=== PATIENT | female | born 1965 | race Caucasian/White ===

== ENCOUNTER 2020-06-06 13:52 | Inpatient (IN) | payer OTHER ==
--- OUTSIDE RECORDS SUMMARY | 2020-06-06 13:55 | XMS REPORT | Continuity of Care Document ---
:1965 Author Organization [facility] t Address [address] [place] [address] Care Team Providers Name Role Phone Unavailable Unavailable Unavailable Payers Payer Name Policy Type Policy Number Effective Date Expiration Date S ource Problems This patient has no known problems. Allergies, Adverse Reactions, Alerts Allergy Allergy Status Severity Reaction(s) Onset Inactive Treating Comm ents Source Name Type Date Date Clinician soy DA Active SD 2008-02 [facility] 02-22 [place] 00:00: [address] codeine DA Active SD 2008-02 [facility] 02-22 [place] 00:00: [address] Medications This patient has no known medications. Procedures This patient has no known procedures. Results This patient has no known results.
[2020-06-06 15:13] LABS: Absolute Lymphocytes (CBC) 2.6 K/uL (0.7-4.9); Basophils % 0.6 % (0-1.3); Hematocrit 45.4 % (36.0-45.0); Lymphocytes % 17.2 % (15.3-44.8); MPV 7.2 fL (7.6-11.3); RBC Red Blood Cell Count 5.12 M/uL (3.86-4.86)
[2020-06-06] MEDS ORDERED: ONDANSETRON 4 MG/2 ML VIAL ONE ×2 (15:26→17:39)
[2020-06-06] MEDS ORDERED: MORPHINE 4 MG/ML SYR ONE (15:26)
[2020-06-06 15:27] LABS: Bilirubin Direct 0.2 mg/dL (0-0.2); Bilirubin Total 0.5 mg/dL (0.2-1.0); Potassium 3.8 mmol/L (3.5-5.1); Protein, Total 7.8 g/dL (6.4-8.2)
[2020-06-06] MEDS ORDERED: METRONIDAZOLE 500mg IVPB 500 MG/100 ML BAG IV ONE (15:27)
[2020-06-06] MEDS ORDERED: CEFTRIAXONE/SWI 1gm 1 GM/10 ML SYR ONE (15:27)
[2020-06-06] MEDS ORDERED: NA CHLORIDE 0.9% 1,000 ML ONE ×2 (15:27→20:11)
[2020-06-06] MEDS ORDERED: FAMOTIDINE 20 MG/2 ML VIAL IV ONE (15:27)
[2020-06-06] MEDS ORDERED: NA CHLORIDE 0.9% 50 ML ONE (15:27)
--- NOTE | 2020-06-06 17:10 | RAD REPORT ---
EXAM DESCRIPTION: CT - Abdomen Pelvis W Contrast - 06/06/2020 4:54 pm CLINICAL HISTORY: Abdominal pain. COMPARISON: None. TECHNIQUE: Computed axial tomography of the abdomen and pelvis was obtained. 100 cc Isovue-300 is ad ministered intravenously. Oral contrast was given. All CT scans are performed using dose optimization technique as appropriate and may include automated exposure control or mA/KV adjustment according to patient size. FINDINGS: Fatty liver The Spleen, pancreas, adrenals and kidneys appear unremarkable. The wall of the descending colon is moderately. There is no evidence of diverticulitis Uterine fibroids suspected. Neurostimulator device is in place. Normal appendix IMPRESSION: Moderate descending colitis
[2020-06-06 17:32] LABS: Urine Blood NEGATIVE (Negative); Urine Glucose NEGATIVE (Negative); Urine Protein NEGATIVE (Negative); Urine Specific Gravity 1.015 (1.005-1.030)
[2020-06-06] MEDS ORDERED: NA CHLORIDE 0.9% 500 ML ONE (17:39)
[2020-06-06] MEDS ORDERED: MORPHINE 2 MG/ML SYR ONE (17:39)
--- NOTE | 2020-06-06 17:43 | EDPHYS ---
Physician Documentation [facility] Name: Laly Carranza Age: 54 yrs Sex: Female : 1965 Arrival Date: 06/06/2020 Time: 13:54 Bed 27 Private MD: Trinidad Argueta K; Dimas Pike H ED Physician Andrea Wolf HPI: 06/06 14:56 This 54 yrs old Female presents to ER via Ambulatory with complaints of roni Rectal Bleeding. 14:56 This 54 yrs old Female presents to ER via Ambulatory with complaints of roni Rectal Bleeding. 14:56 The patient presents to the emergency department with bleeding from the rectum/anus, roni that is moderate. Onset: The symptoms/episode began/occurred 2 day(s) ago. Context: the patient has no known special context relating to the rectal area complaint(s), has a known history of hemorrhoids. Modifying factors: The symptoms are alleviated by nothing, The symptoms are aggravated by bowel movement, nothing. Associate signs and symptoms: The patient has no apparent associated signs or symptoms. Associate signs and symptoms: Pertinent positives: abdominal pain in the right lower quadrant and left lower quadrant. The patient has experienced similar episodes in the past, a few times. 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 ablasion jd3 Historical: - Allergies: 14:25 Codeine; jd3 14:25 OxyContin; jd3 14:25 serotonin HCl (bulk); jd3 14:25 Levaquin; jd3 14:25 Bactrim; jd3 - Home Meds: 14:25 aspirin 81 mg Oral TbEC [Active]; Flexeril 10 mg Oral tab [Active]; lisinopril 5 mg jd3 oral tab [Active]; metoprolol tartrate 50 mg oral tab [Active]; Neurontin 300 mg Oral cap [Active]; Nucynta ER 150 mg Oral Tb12 [Active]; Prilosec 20 mg Oral cpDR [Active]; Singulair 10 mg Oral tab [Active]; triamterene Oral [Active]; Vitamin D Oral [Active]; Xanax 0.5 mg Oral tab [Active]; Zyrtec 10 mg Oral tab [Active]; omeprazole 40 mg Oral cpDR [Active]; flecainide 50 mg oral tab [Active]; trelogy inhaler [Active]; pro air [Active]; - PMHx: 14:25 Asthma; Hypertension; Chronic pain; nerve pain; GERD; SVT; Back pain; jd3 - PSHx: 14:25 uterine ablation; jd3 - Immunization history:: Adult Immunizations unknown. - Social history:: Smoking status: unknown. ROS: 15:02 Constitutional: Negative for fever, chills, and weight loss, Eyes: Negative for injury, rnoi pain, redness, and discharge, ENT: Negative for injury, pain, and discharge, Neck: Negative for injury, pain, and swelling, Cardiovascular: Negative for chest pain, palpitations, and edema, Respiratory: Negative for shortness of breath, cough, wheezing, and pleuritic chest pain, Back: Negative for injury and pain, : Negative for injury, bleeding, discharge, and swelling, MS/Extremity: Negative for injury and deformity, Skin: Negative for injury, rash, and discoloration, Neuro: Negative for headache, weakness, numbness, tingling, and seizure, Psych: Negative for depression, anxiety, suicide ideation, homicidal ideation, and hallucinations, Allergy/Immunology: Negative for hives, rash, and allergies, Endocrine: Negative for neck swelling, polydipsia, polyuria, polyphagia, and marked weight changes, Hematologic/Lymphatic: Negative for swollen nodes, abnormal bleeding, and unusual bruising. 15:02 Abdomen/GI: Positive for abdominal pain, nausea and vomiting, abdominal cramps, of the right lower quadrant and left lower quadrant. Exam: 15:02 Constitutional: This is a well developed, well nourished patient who is awake, alert, roni and in no acute distress. Head/Face: Normocephalic, atraumatic. Eyes: Pupils equal round and reactive to light, extra-ocular motions intact. Lids and lashes normal. Conjunctiva and sclera are non-icteric and not injected. Cornea within normal limits. Periorbital areas with no swelling, redness, or edema. ENT: Nares patent. No nasal discharge, no septal abnormalities noted. Tympanic membranes are normal and external auditory canals are clear. Oropharynx with no redness, swelling, or masses, exudates, or evidence of obstruction, uvula midline. Mucous membranes moist. Neck: Trachea midline, no thyromegaly or masses palpated, and no cervical lymphadenopathy. Supple, full range of motion without nuchal rigidity, or vertebral point tenderness. No Meningismus. Chest/axilla: Normal chest wall appearance and motion. Nontender with no deformity. No lesions are appreciated. Cardiovascular: Regular rate and rhythm with a normal S1 and S2. No gallops, murmurs, or rubs. Normal PMI, no JVD. No pulse deficits. Respiratory: Lungs have equal breath sounds bilaterally, clear to auscultation and percussion. No rales, rhonchi or wheezes noted. No increased work of breathing, no retractions or nasal flaring. Abdomen/GI: Soft, non-tender, with normal bowel sounds. No distension or tympany. No guarding or rebound. No evidence of tenderness throughout. Back: No spinal tenderness. No costovertebral tenderness. Full range of motion. Skin: Warm, dry with normal turgor. Normal color with no rashes, no lesions, and no evidence of cellulitis. MS/ Extremity: Pulses equal, no cyanosis. Neurovascular intact. Full, normal range of motion. Neuro: Awake and alert, GCS 15, oriented to person, place, time, and situation. Cranial nerves II-XII grossly intact. Motor strength 5/5 in all extremities. Sensory grossly intact. Cerebellar exam normal. Normal gait. Psych: Awake, alert, with orientation to person, place and time. Behavior, mood, and affect are within normal limits. 15:02 Abdomen/GI: Inspection: abdomen appears normal, Bowel sounds: active, Palpation: mild abdominal tenderness, moderate abdominal tenderness, in the umbilical area, right lower quadrant and left lower quadrant, Liver: no appreciated palpable abnormalities, Hernia: not appreciated. Vital Signs: 14:25 BP 121 / 95; Pulse 92; Resp 18 S; Temp 98.2(TE); Pulse Ox 98% on R/A; Weight 84.82 kg jd3 (R); Height 5 ft. 5 in. (165.10 cm) (R); Pain 6/10; 15:00 BP 99 / 72; Pulse 73; Resp 16; Pulse Ox 98% on R/A; zb 16:00 BP 119 / 80; Pulse 77; Resp 16; Pulse Ox 96% on R/A; zb 17:00 BP 99 / 64; Pulse 72; Resp 16; Pulse Ox 99% on R/A; zb 18:00 BP 98 / 70; Pulse 74; Resp 18; Pulse Ox 99% on R/A; zb 19:00 BP 112 / 62; Pulse 72; Resp 16; Pulse Ox 96% on R/A; zb 20:00 BP 104 / 70; Pulse 69; Resp 16; Pulse Ox 95% on R/A; zb 14:25 Body Mass Index 31.12 (84.82 kg, 165.10 cm) jd3 MDM: 14:29 Patient medically screened. [facility] 15:04 Differential diagnosis: hemorrhoids, fissure. Data reviewed: vital signs, nurses notes, [facility] lab test result(s), radiologic studies, CT scan. 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 rate is 92 beats/min, rhythm is regular, Pulse oximetry: on room air is 98 %. Counseling: I had a detailed discussion with the patient and/or guardian regarding: the historical points, exam findings, and any diagnostic results supporting the discharge/admit diagnosis, lab results, radiology results. 06/06 14:52 Order name: Basic Metabolic Panel [facility] 06/06 14:52 Order name: CBC with Diff [facility] 06/06 14:52 Order name: Hepatic Function [facility] 06/06 14:52 Order name: Lipase [facility] 06/06 14:52 Order name: Urine Culture [facility] 06/06 14:52 Order name: Stool Culture [facility] 06/06 14:52 Order name: Basic Metabolic Panel; Complete Time: 16:16 EDOK 06/06 14:52 Order name: CBC with Automated Diff; Complete Time: 16:16 EDOK 06/06 14:52 Order name: Liver (Hepatic) Function; Complete Time: 16:16 EDOK 06/06 14:52 Order name: Lipase; Complete Time: 16:16 EDOK 06/06 17:04 Order name: COVID-19 : Document "Date of Symptom Onset" if Symptomatic. aa5 06/06 17:28 Order name: Urine Dipstick--Ancillary (enter results) eb 06/06 17:28 Order name: Urine Dipstick-Ancillary; Complete Time: 17:39 EDOK 06/06 14:52 Order name: IV Saline Lock; Complete Time: 15:49 [facility] 06/06 15:02 Order name: CT Abd/Pelvis - PO and IV Contrast: ORAL AND IV; Complete Time: 17:39 [facility] 06/06 18:24 Order name: SARS-COV-2 RT PCR; Complete Time: 18:44 EDMS 06/07 05:23 Order name: Protime (+INR) EDMS 06/07 05:23 Order name: Comprehensive Metabolic Panel EDOK 06/07 06:04 Order name: CBC with Automated Diff EDMS 06/06 14:52 Order name: Labs collected and sent; Complete Time: 15:50 [facility] 06/06 14:52 Order name: Urine Dipstick-Ancillary (obtain specimen); Complete Time: 05:30 [facility] Administered Medications: 15:22 Drug: Pepcid (famotidine) 20 mg Route: IVP; Site: right antecubital; zb 16:00 Follow up: Response: No adverse reaction; Marked relief of symptoms zb 15:23 Drug: NS 0.9% 1000 ml Route: IV; Rate: 1 bolus; Site: right antecubital; zb 17:32 Follow up: Response: No adverse reaction; IV Status: Completed infusion; IV Intake: zb 500ml 15:23 Drug: morphine 4 mg {Note: rass 0.} Route: IVP; Site: right antecubital; zb 16:15 Follow up: Response: No adverse reaction; Pain is decreased; RASS: Alert and Calm (0) zb 15:23 Drug: Zofran (Ondansetron) 4 mg Route: IVP; Site: right antecubital; zb 16:00 Follow up: Response: No adverse reaction; Marked relief of symptoms; Nausea is decreasedzb 15:23 Drug: Flagyl (metroNIDAZOLE) 500 mg Volume: 100 ml; Route: IVPB; Rate: 200 ml/hr; zb Infused Over: 30 mins; Site: right antecubital; 22:16 Follow up: IV Status: Completed infusion; IV Intake: 250ml rv 16:31 Drug: Rocephin - (cefTRIAXone) 1 grams Route: IVPB; Infused Over: 30 mins; Site: right zb antecubital; 17:33 Follow up: Response: No adverse reaction; IV Status: Completed infusion; IV Intake: 50mlzb 17:34 Drug: NS 0.9% 500 ml Route: IV; Rate: bolus; Site: right antecubital; zb 19:00 Follow up: Response: No adverse reaction; IV Status: Completed infusion; IV Intake: zb 500ml 17:35 Drug: Zofran (Ondansetron) 4 mg Route: IVP; Site: right antecubital; zb 18:43 Follow up: Response: No adverse reaction; Nausea is decreased zb 17:35 Drug: morphine 2 mg {Note: rass 0.} Route: IVP; Site: right antecubital; zb 18:43 Follow up: Response: No adverse reaction; Pain is decreased; RASS: Alert and Calm (0) zb 20:02 Drug: NS 0.9% 1000 ml Route: IV; Rate: 125 ml/hr; Site: right antecubital; zb 22:16 Follow up: IV Status: Infusion continued upon admission rv Disposition: 06/06/20 17:43 Hospitalization ordered by Charlie Cook for Inpatient Admission. Preliminary diagnosis are Left sided colitis - moderate decending colitis, Abdominal tenderness, Gastrointestinal hemorrhage, unspecified - lower, Elevated white blood cell count. - Bed requested for Telemetry/MedSurg (Inpatient). - Status is Inpatient Admission. bb - Condition is Stable. - Problem is new. - Symptoms have improved. Signatures: Dispatcher [employer] EDOK Andrea Wolf MD MD cha Ballard, Brenda RN RN bb Vikram Rae FNP-Ela INTERVENTIONAL PAIN PHYSICIAN-Cla1 Tere Brizuela, RN RN tl1 Tony Tripp RN RN jd3 Izzy Isaacs mw2 Yolie Fletcher RN RN zb Vicente, Ronaldo RN rv Corrections: (The following items were deleted from the chart) 17:37 17:05 CORONAVIRUS ordered. EDOK EDOK 18:01 17:43 Hospitalization Ordered by Deejay Schofield MD for Inpatient Admission. Preliminary [facility] diagnosis is Left sided colitis - moderate decending colitis; Abdominal tenderness; Gastrointestinal hemorrhage, unspecified - lower; Elevated white blood cell count. Bed requested for Telemetry/MedSurg (Inpatient). Status is Inpatient Admission. Condition is Stable. Problem is new. Symptoms have improved. roni 21:33 18:01 06/06/2020 17:43 Hospitalization Ordered by Charlie Cook MD for Inpatient mw2 Admission. Preliminary diagnosis is Left sided colitis - moderate decending colitis; Abdominal tenderness; Gastrointestinal hemorrhage, unspecified - lower; Elevated white blood cell count. Bed requested for Telemetry/MedSurg (Inpatient). Status is Inpatient Admission. Condition is Stable. Problem is new. Symptoms have improved. roni 06/07 19:48 06/06 21:33 06/06/2020 17:43 Hospitalization Ordered by Charlie Cook MD for Inpatient tl1 Admission. Preliminary diagnosis is Left sided colitis - moderate decending colitis; Abdominal tenderness; Gastrointestinal hemorrhage, unspecified - lower; Elevated white blood cell count. Bed requested for [facility] ER HOLD. Status is Inpatient Admission. Condition is Stable. Problem is new. Symptoms have improved. mw2 06/07 19:48 19:48 06/06/2020 17:43 Hospitalization Ordered by Charlie Cook MD for Inpatient mw2 Admission. Preliminary diagnosis is Left sided colitis - moderate decending colitis; Abdominal tenderness; Gastrointestinal hemorrhage, unspecified - lower; Elevated white blood cell count. Bed requested for Telemetry/MedSurg (Inpatient). Status is Inpatient Admission. Condition is Stable. Problem is new. Symptoms have improved. tl1 21:36 19:48 06/06/2020 17:43 Hospitalization Ordered by Charlie Cook MD for Inpatient bb Admission. Preliminary diagnosis is Left sided colitis - moderate decending colitis; Abdominal tenderness; Gastrointestinal hemorrhage, unspecified - lower; Elevated white blood cell count. Bed requested for Telemetry/MedSurg (Inpatient). Status is Inpatient Admission. Condition is Stable. Problem is new. Symptoms have improved. mw2
--- NOTE | 2020-06-06 17:43 | ER ---
Nurse's Notes [facility] Name: Laly Carranza Age: 54 yrs Sex: Female : 1965 Arrival Date: 06/06/2020 Time: 13:54 Bed 27 Private MD: Trinidad Argueta K; Dimas Pike H Diagnosis: Left sided colitis-moderate decending colitis;Abdominal tenderness;Gastrointestinal hemorrhage, unspecified-lower;Elevated white blood cell count Presentation: 06/06 14:18 Chief complaint: Patient states: "I am having bloody stool and vomiting as well as bad jd3 lower abdominal pain.". Coronavirus screen: At this time, the client does not indicate any symptoms associated with coronavirus-19. Ebola Screen: Patient negative for fever greater than or equal to 101.5 degrees Fahrenheit, and additional compatible Ebola Virus Disease symptoms. Initial Sepsis Screen: Does the patient meet any 2 criteria? No. Patient's initial sepsis screen is negative. Does the patient have a suspected source of infection? No. Patient's initial sepsis screen is negative. Risk Assessment: Do you want to hurt yourself or someone else? Patient reports no desire to harm self or others. Onset of symptoms was June 06, 2020. 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 N/A - uteren ablasion jd3 Historical: - Allergies: 14:25 Codeine; jd3 14:25 OxyContin; jd3 14:25 serotonin HCl (bulk); jd3 14:25 Levaquin; jd3 14:25 Bactrim; jd3 - Home Meds: 14:25 aspirin 81 mg Oral TbEC [Active]; Flexeril 10 mg Oral tab [Active]; lisinopril 5 mg jd3 oral tab [Active]; metoprolol tartrate 50 mg oral tab [Active]; Neurontin 300 mg Oral cap [Active]; Nucynta ER 150 mg Oral Tb12 [Active]; Prilosec 20 mg Oral cpDR [Active]; Singulair 10 mg Oral tab [Active]; triamterene Oral [Active]; Vitamin D Oral [Active]; Xanax 0.5 mg Oral tab [Active]; Zyrtec 10 mg Oral tab [Active]; omeprazole 40 mg Oral cpDR [Active]; flecainide 50 mg oral tab [Active]; trelogy inhaler [Active]; pro air [Active]; - PMHx: 14:25 Asthma; Hypertension; Chronic pain; nerve pain; GERD; SVT; Back pain; jd3 - PSHx: 14:25 uterine ablation; jd3 - Immunization history:: Adult Immunizations unknown. - Social history:: Smoking status: unknown. Screenin:06 Abuse screen: Denies threats or abuse. Denies injuries from another. Nutritional zb screening: No deficits noted. Tuberculosis screening: No symptoms or risk factors identified. Fall Risk None identified. Assessment: 15:50 General: Appears in no apparent distress. uncomfortable, Behavior is cooperative, zb anxious. Pain: Complains of pain in umbilical area and left lower quadrant and right lower quadrant Pain currently is 8 out of 10 on a pain scale. Neuro: Level of Consciousness is awake, alert, obeys commands, Oriented to person, place, time, situation. Cardiovascular: Patient's skin is warm and dry. Respiratory: Airway is patent Respiratory effort is even, unlabored, Respiratory pattern is regular, symmetrical. GI: Abdomen is round Bowel sounds present X 4 quads. Reports diarrhea, rectal bleeding, intolerance of fluids, intolerance of food, nausea, vomiting. Derm: Skin is intact, is healthy with good turgor, Skin is dry, Skin is normal, Skin temperature is warm. Musculoskeletal: Range of motion: intact in all extremities. 16:00 Reassessment: Patient appears in no apparent distress at this time. Patient and/or zb family updated on plan of care and expected duration. Pain level reassessed. Patient is alert, oriented x 3, equal unlabored respirations, skin warm/dry/pink. 17:17 Reassessment: Patient appears in no apparent distress at this time. Patient and/or zb family updated on plan of care and expected duration. Pain level reassessed. Patient is alert, oriented x 3, equal unlabored respirations, skin warm/dry/pink. pt c/o of nausea and pain. notified ecp. 18:00 Reassessment: Patient appears in no apparent distress at this time. Patient and/or zb family updated on plan of care and expected duration. Pain level reassessed. Patient is alert, oriented x 3, equal unlabored respirations, skin warm/dry/pink. FAMILY AT BEDSIDE. IV INFUSING. 19:00 Reassessment: Patient appears in no apparent distress at this time. Patient and/or zb family updated on plan of care and expected duration. Pain level reassessed. Patient is alert, oriented x 3, equal unlabored respirations, skin warm/dry/pink. FAMILY AT BEDSIDE IV INFUSING. 20:00 Reassessment: Patient appears in no apparent distress at this time. Patient and/or zb family updated on plan of care and expected duration. Pain level reassessed. Patient is alert, oriented x 3, equal unlabored respirations, skin warm/dry/pink. LIGHT DIMMED. ICE CHIPS GIVEN. FAMILY AT BEDSIDE. IV INFUSING. IV DRESS C/D/I. FAMILY REMAINS AT BEDSIDE. Vital Signs: 14:25 BP 121 / 95; Pulse 92; Resp 18 S; Temp 98.2(TE); Pulse Ox 98% on R/A; Weight 84.82 kg jd3 (R); Height 5 ft. 5 in. (165.10 cm) (R); Pain 6/10; 15:00 BP 99 / 72; Pulse 73; Resp 16; Pulse Ox 98% on R/A; zb 16:00 BP 119 / 80; Pulse 77; Resp 16; Pulse Ox 96% on R/A; zb 17:00 BP 99 / 64; Pulse 72; Resp 16; Pulse Ox 99% on R/A; zb 18:00 BP 98 / 70; Pulse 74; Resp 18; Pulse Ox 99% on R/A; zb 19:00 BP 112 / 62; Pulse 72; Resp 16; Pulse Ox 96% on R/A; zb 20:00 BP 104 / 70; Pulse 69; Resp 16; Pulse Ox 95% on R/A; zb 14:25 Body Mass Index 31.12 (84.82 kg, 165.10 cm) jd3 ED Course: 13:54 Patient arrived in ED. as 13:54 Trinidad Argueta MD is Private Physician. as 13:54 Dimas Pike MD is Private Physician. as 14:20 Triage completed. jd3 14:27 Andrea Wolf MD is Attending Physician. [facility] 14:27 Arm band placed on. jd3 14:38 Brown, Yolie, RN is Primary Nurse. zb 15:00 Patient has correct armband on for positive identification. groundwater monitoring technician on. Pulse zb ox on. NIBP on. Door closed. Noise minimized. 15:00 Inserted saline lock: 20 gauge in right antecubital area, using aseptic technique. zb Blood collected. 16:54 CT Abd/Pelvis - PO and IV Contrast: ORAL AND IV In Process Unspecified. EDMS 17:32 COVID-19 : Document "Date of Symptom Onset" if Symptomatic. Sent. zb 17:32 Urine Dipstick--Ancillary (enter results) Sent. zb 17:40 Deejay Schofield MD is Hospitalizing Provider. roni 18:01 Charlie Cook MD is Hospitalizing Provider. roni 22:15 No provider procedures requiring assistance completed. IV is patent, with fluids rv infusing freely, Patient admitted, IV remains in place. Administered Medications: 15:22 Drug: Pepcid (famotidine) 20 mg Route: IVP; Site: right antecubital; zb 16:00 Follow up: Response: No adverse reaction; Marked relief of symptoms zb 15:23 Drug: NS 0.9% 1000 ml Route: IV; Rate: 1 bolus; Site: right antecubital; zb 17:32 Follow up: Response: No adverse reaction; IV Status: Completed infusion; IV Intake: zb 500ml 15:23 Drug: morphine 4 mg {Note: rass 0.} Route: IVP; Site: right antecubital; zb 16:15 Follow up: Response: No adverse reaction; Pain is decreased; RASS: Alert and Calm (0) zb 15:23 Drug: Zofran (Ondansetron) 4 mg Route: IVP; Site: right antecubital; zb 16:00 Follow up: Response: No adverse reaction; Marked relief of symptoms; Nausea is decreasedzb 15:23 Drug: Flagyl (metroNIDAZOLE) 500 mg Volume: 100 ml; Route: IVPB; Rate: 200 ml/hr; zb Infused Over: 30 mins; Site: right antecubital; 22:16 Follow up: IV Status: Completed infusion; IV Intake: 250ml rv 16:31 Drug: Rocephin - (cefTRIAXone) 1 grams Route: IVPB; Infused Over: 30 mins; Site: right zb antecubital; 17:33 Follow up: Response: No adverse reaction; IV Status: Completed infusion; IV Intake: 50mlzb 17:34 Drug: NS 0.9% 500 ml Route: IV; Rate: bolus; Site: right antecubital; zb 19:00 Follow up: Response: No adverse reaction; IV Status: Completed infusion; IV Intake: zb 500ml 17:35 Drug: Zofran (Ondansetron) 4 mg Route: IVP; Site: right antecubital; zb 18:43 Follow up: Response: No adverse reaction; Nausea is decreased zb 17:35 Drug: morphine 2 mg {Note: rass 0.} Route: IVP; Site: right antecubital; zb 18:43 Follow up: Response: No adverse reaction; Pain is decreased; RASS: Alert and Calm (0) zb 20:02 Drug: NS 0.9% 1000 ml Route: IV; Rate: 125 ml/hr; Site: right antecubital; zb 22:16 Follow up: IV Status: Infusion continued upon admission rv Intake: 17:32 IV: 500ml; Total: 500ml. zb 17:33 IV: 50ml; Total: 550ml. zb 19:00 IV: 500ml; Total: 1050ml. zb 22:16 IV: 250ml; Total: 1300ml. rv Outcome: 17:43 Decision to Hospitalize by Provider. roni 22:16 Admitted to ER Hold. Please see [facility] for further documentation. rv 22:16 Condition: good 22:16 Instructed on the need for admit. 06/07 21:36 Patient left the ED. bb Signatures: Dispatcher [employer] nAdrea Cartagena MD MD cha Martinez, Amelia as Ballard, Brenda, RN RN bb Davies, Jonathon, RN RN Jhoan Gaytan RN RN rv Brown, Zipporah, RN RN zb
--- NOTE | 2020-06-06 21:07 | P.HP ---
Certification for Inpatient Patient admitted to: Inpatient With expected LOS: >2 Midnights Patient will require the following post-hospital care: None Practitioner: I am a practitioner with admitting privileges, knowledge of patient current condition, hospital course, and medical plan of care. Services: Services provided to patient in accordance with Admission requirements found in Title 42 Section 412.3 of the Code of Federal Regulations <Vikram Rae - Last Filed: 06/06/20 21:10> Patient History Date of Service: 06/06/20 Reason for admission: Colitis, BRBPR History of Present Illness: 54-year-old female with history of asthma, hypertension, GERD, SVT presents emergency department for lower abdominal pain and bright red blood per rectum. Patient reports abdominal pain and bright red blood per rectum since last night at approximately 1900. Patient reports 4-5 bowel movements, the 1st were soft and without blood but the following bowel movements did consist of small amounts of bright red blood. Patient evaluated in the emergency department labs significant for white blood cell count 15.1 hemoglobin 15.5 hematocrit 45.[address] demonstrates moderate descending colitis. Patient was given Rocephin/Flagyl in the emergency department. Gastroenterology was consulted and will see patient in the hospital. Patient had recent colonoscopy in March demonstrating redundant colon, internal/external hemorrhoids and gastritis. - Past Medical/Surgical History Diabetic: No -: Asthma -: Hypertension -: GERD -: SVT/atrial tachycardia -: Chronic pain -: Rotator cuff surgery -: Tummy tuck -: Uterine ablation -: Left knee surgery Psychosocial/ Personal History: Patient lives with family - Family History Mother -: Heart disease, Diabetes Father -: Heart disease Brother -: Heart disease, Cancer - Social History Smoking Status: Never smoker Alcohol use: No CD- Drugs: No Caffeine use: No Place of Residence: Home <Vikram Rae - Last Filed: 06/06/20 21:10> Date of Service: 06/13/20 <Charlie Cook - Last Filed: 06/13/20 21:40> Allergies codeine [Codeine] Allergy (Severe, Verified 08/28/11 04:52) Nausea/Vomiting levofloxacin [From Levaquin] Allergy (Verified 06/07/20 07:18) Itching/Hives/Rash oxycodone [From OxyContin] Allergy (Verified 06/07/20 07:18) Nausea/Vomiting sulfamethoxazole [From Bactrim] Allergy (Verified 06/07/20 07:18) Itching/Hives/Rash trimethoprim [From Bactrim] Allergy (Verified 06/07/20 07:18) Itching/Hives/Rash serotonin HCl (bulk) Allergy (Uncoded 10/21/15 09:56) Unknown Home Medications: Cetirizine HCl [Zyrtec] 10 mg PO BEDTIME 08/28/11 Gabapentin [Neurontin] 300 mg PO BID 08/28/11 Lisinopril 10 mg PO DAILY 08/28/11 Montelukast Sodium [Singulair] 10 mg PO BEDTIME 08/28/11 Tapentadol HCl [Nucynta] 100 mg PO TID PRN 08/28/11 Alprazolam [Xanax] 0.5 mg PO DAILY 06/07/20 Cholecalciferol (Vitamin D3) [Vitamin D 1000 Iu Tab*] 2,000 unit PO DAILY 06/07/20 Flecainide [Tambocor*] 50 mg PO BID 06/07/20 Metoprolol Tartrate [Lopressor] 50 mg PO DAILY 06/07/20 Omeprazole [Prilosec] 40 mg PO DAILY 06/07/20 Triamterene/Hydrochlorothiazid [Triamterene-Hctz 37.5-25 mg Tb] 1 cap PO DAILY 06/07/20 Cholestyramine/Asp [Questran Light*] 4 gm PO BIDWM #14 packet 06/11/20 Dicyclomine [Bentyl*] 10 mg PO TID PRN #30 cap 06/11/20 Mometasone/Formoterol [Dulera 100 Mcg/5 Mcg Inhaler] 2 puff IH BID #1 inhaler 06/11/20 Ondansetron [Zofran (Odt)*] 4 mg PO Q6H PRN #20 tab 06/11/20 Review of Systems 10-point ROS is otherwise unremarkable Gastrointestinal: Nausea, Abdominal Pain, Diarrhea, Hematochezia, As per HPI <Vikram Rae - Last Filed: 06/06/20 21:10> Physical Examination - Physical Exam General: Alert, In no apparent distress HEENT: Atraumatic, PERRLA, Mucous membr. moist/pink, EOMI, Sclerae nonicteric Neck: Supple, 2+ carotid pulse no bruit, No LAD, Without JVD or thyroid abnormality Respiratory: Clear to auscultation bilaterally, Normal air movement Cardiovascular: Regular rate/rhythm, Normal S1 S2 Gastrointestinal: Normal bowel sounds, No masses, No rebound, No guarding, Tenderness (Mild abdominal tenderness left upper and lower quadrant, suprapubic) Musculoskeletal: No tenderness Integumentary: No rashes Neurological: Normal speech, Normal strength at 5/5 x4 extr, Normal tone Lymphatics: No axilla or inguinal lymphadenopathy - Studies Laboratory Data (last 24 hrs) 06/06/20 15:04: WBC 15.10 H, Hgb 15.5 H, Hct 45.4 H, Plt Count 308 06/06/20 15:04: Sodium 138, Potassium 3.8, BUN 16, Creatinine 0.95, Glucose 100, Total Bilirubin 0.5, AST 9 L, ALT 25, Alkaline Phosphatase 87, Lipase 187 <Vikram Rae - Last Filed: 06/06/20 21:10> Assessment and Plan - Plan Assessment Moderate descending colitis with hematochezia Asthma GERD Hypertension Atrial tachycardia/SVT Plan Moderate descending colitis with hematochezia: NPO at this time, continue with IV Rocephin/Flagyl, Protonix, IV fluids, p.r.n. anti emetics. Gastroenterology consulted. DVT prophylaxis with SCDs. Daily labs. Hemoglobin 15, likely concentrated, expect drop in hemoglobin with morning labs with rehydration, transfuse for hemoglobin less than 7. Asthma: Patient takes trelogy inhaler at home, will substitute with Dulera at this time and p.r.n. albuterol. Stable at this time, no shortness of breath/wheezing noted GERD: Continue with Protonix Hypertension: Obtain and continue home meds Atrial tachycardia/SVT: Patient currently taking flecainide for SVT/atrial tachycardia, reports that acute her symptoms under control. Will continue to monitor patient on telemetry, no episodes at this time. Discharge Plan: Home Plan to discharge in: 48 Hours - Advance Directives Does patient have a Living Will: No Does patient have a Durable POA for Healthcare: No - Code Status/Comfort Care Code Status Assessed: Yes (Full code) Critical Care: No Time Spent Managing Pts Care (In Minutes): 55 <Vikram Rae - Last Filed: 06/06/20 21:10> - Plan Plan of care reviewed as noted above by Vikram Rae. descending colitis w/ Hematochezia NPO, IV Antibiotics, IVF, GI consulted, trend H/H <Charlie Cook - Last Filed: 06/13/20 21:40>
[2020-06-06] MEDS ORDERED: ACETAMINOPHEN 500 MG TAB PO PRN (22:50)
[2020-06-06] MEDS: NA CHLORIDE 0.9% 1,000 ML IV SCH (22:50)
[2020-06-06] MEDS ORDERED: SODIUM CHLORIDE 0.9% 10ML INJ IV PRN (22:50)
[2020-06-06] MEDS ORDERED: ALBUTEROL INHALER 60 PUFF/8 GM IH PRN (22:50)
[2020-06-06] MEDS: DULERA 100/5 (MOMETASONE/FORMOTEROL) INHALER IH SCH (22:50)
[2020-06-06] MEDS ORDERED: FLECAINIDE 100 MG TAB PO SCH (23:59)
[2020-06-07] MEDS: FLECAINIDE 100 MG TAB PO SCH ×3 (00:01→21:47)
[2020-06-07] MEDS ORDERED: CETIRIZINE HCL 5 MG TABLET ONE (00:22)
[2020-06-07] MEDS ORDERED: GABAPENTIN 300 MG CAP ONE ×2 (00:23→09:47)
[2020-06-07] MEDS ORDERED: ALPRAZOLAM 0.5 MG TABLET ONE (00:23)
[2020-06-07] MEDS ORDERED: NA CHLORIDE 0.9% 0 ML ONE (00:23)
[2020-06-07] MEDS ORDERED: DICYCLOMINE HCL 10 MG CAP ONE ×3 (00:29→12:01)
[2020-06-07] MEDS ORDERED: GABAPENTIN 300 MG CAP PO ONE (00:30)
[2020-06-07] MEDS ORDERED: FLECAINIDE 100 MG TAB ONE (00:45)
[2020-06-07] MEDS ORDERED: MONTELUKAST 10 MG TAB ONE (00:50)
[2020-06-07] MEDS: MORPHINE 2 MG/ML SYR IV PRN ×4 (00:53→21:51)
[2020-06-07] MEDS: DICYCLOMINE HCL 10 MG CAP PO PRN ×4 (00:53→21:52)
[2020-06-07] MEDS: ONDANSETRON 4 MG/2 ML VIAL IV PRN ×4 (00:55→21:47)
[2020-06-07] MEDS ORDERED: ONDANSETRON 4 MG/2 ML VIAL ONE ×3 (00:56→12:01)
[2020-06-07] MEDS ORDERED: MORPHINE 2 MG/ML SYR ONE ×3 (00:56→12:01)
[2020-06-07] MEDS: MONTELUKAST 10 MG TAB PO SCH ×2 (01:00→21:52)
[2020-06-07] MEDS: METRONIDAZOLE 500mg IVPB 500 MG/100 ML BAG IV SCH ×3 (01:00→17:00)
[2020-06-07] MEDS: CETIRIZINE HCL 5 MG TABLET PO PRN ×2 (01:05→21:46)
[2020-06-07] MEDS: ALPRAZOLAM 0.5 MG TABLET PO PRN ×2 (01:06→21:47)
[2020-06-07] MEDS ORDERED: METRONIDAZOLE 500mg IVPB 500 MG/100 ML BAG IV ONE ×3 (01:27→17:22)
[2020-06-07 05:10] LABS: Protime INR 1.2
[2020-06-07 05:20] LABS: Albumin 3.5 g/dL (3.4-5.0); Bilirubin Total 0.6 mg/dL (0.2-1.0); Potassium 3.9 mmol/L (3.5-5.1); Protein, Total 6.7 g/dL (6.4-8.2)
[2020-06-07] MEDS ORDERED: ACETAMINOPHEN 500 MG TAB ONE (05:28)
[2020-06-07 06:03] LABS: Absolute Lymphocytes (CBC) 3.7 K/uL (0.7-4.9); Basophils % 0.7 % (0-1.3); Hematocrit 40.3 % (36.0-45.0); Lymphocytes % 26.3 % (15.3-44.8); MPV 7.2 fL (7.6-11.3); RBC Red Blood Cell Count 4.51 M/uL (3.86-4.86)
[2020-06-07] MEDS: NA CHLORIDE 0.9% 1,000 ML IV SCH ×2 (08:50→21:48)
[2020-06-07] MEDS ORDERED: FLECAINIDE 100 MG TAB PO SCH (09:00)
[2020-06-07] MEDS ORDERED: CEFTRIAXONE 1 GM/NS 50 ML 1 GM/50 ML BAG IV SCH (09:00)
[2020-06-07] MEDS: GABAPENTIN 300 MG CAP PO SCH ×2 (09:44→21:46)
[2020-06-07] MEDS: PANTOPRAZOLE 40 MG INJ IVP SCH (09:44)
[2020-06-07] MEDS: DULERA 100/5 (MOMETASONE/FORMOTEROL) INHALER IH SCH ×2 (09:44→21:00)
[2020-06-07] MEDS: CEFTRIAXONE/SWI 1gm 1 GM/10 ML SYR IV SCH (09:45)
[2020-06-07] MEDS ORDERED: CEFTRIAXONE/SWI 1gm 1 GM/10 ML SYR ONE (09:48)
[2020-06-07] MEDS ORDERED: WATER FOR INJ,STERILE 10 ML ONE (10:00)
[2020-06-07] MEDS ORDERED: PANTOPRAZOLE 40 MG INJ ONE (10:00)
--- NOTE | 2020-06-07 17:33 | P.PN ---
Subjective Date of Service: 06/07/20 Chief Complaint: Colitis, BRBPR Subjective: Improving (reports improvement in pain, no nausea/vomiting, urinating without issue) Review of Systems 10-point ROS is otherwise unremarkable Physical Examination - Vital Signs Temperature: 98.3 F Blood Pressure: 108/63 Pulse: 68 Respirations: 19 Pulse Ox (%): 97 Assessment & Plan Physician Review Additional Text: Physical Exam General: Alert, NAD HEENT: sclera anicteric, normal conjunctiva Respiratory: Clear to auscultation bilaterally, Normal air movement Cardiovascular: Regular rate/rhythm, Normal S1 S2 Gastrointestinal: soft, mild TTP on L abdomen EXT: no tenderness, no rash, no edema Neurological: Normal speech, normal affect Problem List Moderate descending colitis with hematochezia Asthma GERD Hypertension Atrial tachycardia/SVT bowel rest / NPO, IVF, IV rocephin/flagyl protonix, PRN anti-emetics GI consulted serial abdominal exams continue home medications monitor on telemetry VTE: SCDs Code: full Dispo: anticipate dc home in ~2-3days Time Spent Managing Pts Care (In Minutes): 35
[2020-06-07 21:46] VITALS: BMI 31.4
[2020-06-08] MEDS: METRONIDAZOLE 500mg IVPB 500 MG/100 ML BAG IV SCH ×4 (00:45→17:00)
[2020-06-08] MEDS: NA CHLORIDE 0.9% 1,000 ML IV SCH ×2 (04:50→16:16)
[2020-06-08] MEDS: MORPHINE 2 MG/ML SYR IV PRN ×3 (04:53→16:17)
[2020-06-08] MEDS: ONDANSETRON 4 MG/2 ML VIAL IV PRN ×3 (04:53→16:17)
[2020-06-08 05:57] LABS: Absolute Lymphocytes (CBC) 2.2 K/uL (0.7-4.9); Basophils % 0.6 % (0-1.3); Hematocrit 37.7 % (36.0-45.0); Lymphocytes % 22.2 % (15.3-44.8); MPV 7.1 fL (7.6-11.3); RBC Red Blood Cell Count 4.21 M/uL (3.86-4.86)
[2020-06-08 05:58] LABS: Protime INR 1.2
[2020-06-08 06:19] LABS: Albumin 3.3 g/dL (3.4-5.0); Bilirubin Total 0.5 mg/dL (0.2-1.0); Potassium 3.4 mmol/L (3.5-5.1); Protein, Total 6.4 g/dL (6.4-8.2)
[2020-06-08] MEDS ORDERED: KCL 20 MEQ/100 mL IVPB 20 MEQ/100 ML BAG IV SCH (07:00)
[2020-06-08] MEDS: GABAPENTIN 300 MG CAP PO SCH ×2 (09:07→21:49)
[2020-06-08] MEDS: CHOLESTYRAMINE/ASP 4 GM/PKT PO SCH ×2 (09:07→16:46)
[2020-06-08] MEDS: FLECAINIDE 100 MG TAB PO SCH ×2 (09:07→21:45)
[2020-06-08] MEDS: CEFTRIAXONE/SWI 1gm 1 GM/10 ML SYR IV SCH (09:07)
[2020-06-08] MEDS: PANTOPRAZOLE 40 MG INJ IVP SCH (09:07)
[2020-06-08] MEDS: DULERA 100/5 (MOMETASONE/FORMOTEROL) INHALER IH SCH ×2 (09:11→21:00)
[2020-06-08] MEDS: DICYCLOMINE HCL 10 MG CAP PO PRN ×3 (09:16→23:47)
[2020-06-08] MEDS ORDERED: POTASSIUM 25 MEQ EFFERV TAB PO ONE (11:59)
[2020-06-08 14:49] LABS: Urine Blood Negative (Negative); Urine Glucose Negative (Negative); Urine Protein Negative (Negative); Urine Specific Gravity 1.015 (1.005-1.030)
--- NOTE | 2020-06-08 16:46 | P.PN ---
Subjective Date of Service: 06/08/20 Chief Complaint: Colitis, BRBPR Patient tolerating clear liquid diet. She continues to have diarrhea but stated frequency has decreased. She stated the hematochezia has resolved. She report significant improvement in abdominal pain. Physical Examination - Vital Signs Temperature: 97.7 F Blood Pressure: 107/56 Pulse: 73 Respirations: 16 Pulse Ox (%): 97 - Physical Exam General: Alert, In no apparent distress, Oriented x3 HEENT: Mucous membr. moist/pink Neck: JVD not distended Respiratory: Clear to auscultation bilaterally, Normal air movement Cardiovascular: No edema, Regular rate/rhythm, Normal S1 S2 Gastrointestinal: Soft and benign, Non-distended Musculoskeletal: No swelling Integumentary: No rashes Neurological: Normal strength at 5/5 x4 extr Assessment And Plan Physician Review Additional Text: Problem List Moderate descending colitis with hematochezia Asthma GERD Hypertension Atrial tachycardia/SVT Contain IV rocephin/flagyl and IV fluid. Continue protonix and anti-emetics GI input appreciated. Patient started on cholysteramine. Stool WBC no ova and parasite ordered to rule out infection. serial abdominal exams continue home medications Advanced diet as tolerated. VTE: SCDs Code: full
[2020-06-08] MEDS: METOCLOPRAMIDE 5 MG TAB PO SCH ×2 (21:45→22:00)
[2020-06-08] MEDS: MONTELUKAST 10 MG TAB PO SCH (21:45)
[2020-06-08] MEDS: ACETAMINOPHEN 500 MG TAB PO PRN (21:45)
[2020-06-08] MEDS: CETIRIZINE HCL 5 MG TABLET PO PRN (21:45)
[2020-06-08] MEDS: ALPRAZOLAM 0.5 MG TABLET PO PRN (21:45)
[2020-06-08] MEDS ORDERED: MORPHINE 2 MG/ML SYR IM ONE (22:08)
[2020-06-08] MEDS: ONDANSETRON 4 MG (ODT) TAB PO PRN (22:17)
[2020-06-09] MEDS: NA CHLORIDE 0.9% 1,000 ML IV SCH ×2 (00:50→20:50)
[2020-06-09] MEDS: METRONIDAZOLE 500mg IVPB 500 MG/100 ML BAG IV SCH ×3 (01:00→17:00)
[2020-06-09] MEDS: METOCLOPRAMIDE 5 MG TAB PO SCH ×2 (04:00→10:00)
[2020-06-09 05:17] LABS: Absolute Lymphocytes (CBC) 2.3 K/uL (0.7-4.9); Albumin 3.4 g/dL (3.4-5.0); Basophils % 0.6 % (0-1.3); Hematocrit 35.9 % (36.0-45.0); Lymphocytes % 25.8 % (15.3-44.8); MPV 7.1 fL (7.6-11.3); Phosphorus 2.8 mg/dL (2.5-4.9); Potassium 4.3 mmol/L (3.5-5.1); RBC Red Blood Cell Count 4.02 M/uL (3.86-4.86)
[2020-06-09] MEDS: CHOLESTYRAMINE/ASP 4 GM/PKT PO SCH ×2 (08:28→18:44)
[2020-06-09] MEDS: ONDANSETRON 4 MG/2 ML VIAL IV PRN ×2 (11:45→20:14)
[2020-06-09] MEDS: DULERA 100/5 (MOMETASONE/FORMOTEROL) INHALER IH SCH ×2 (11:45→21:00)
[2020-06-09] MEDS: DICYCLOMINE HCL 10 MG CAP PO PRN ×2 (11:46→18:45)
[2020-06-09] MEDS: PANTOPRAZOLE 40 MG INJ IVP SCH (11:46)
[2020-06-09] MEDS: CEFTRIAXONE/SWI 1gm 1 GM/10 ML SYR IV SCH (11:46)
[2020-06-09] MEDS: FLECAINIDE 100 MG TAB PO SCH ×2 (11:46→20:14)
[2020-06-09] MEDS: GABAPENTIN 300 MG CAP PO SCH ×2 (11:47→20:16)
[2020-06-09] MEDS: MORPHINE 2 MG/ML SYR IV PRN ×2 (11:52→21:15)
[2020-06-09 13:03] LABS: C.diff Antigen/Toxin Ag neg : Tox neg (NEG : NEG)
--- NOTE | 2020-06-09 15:19 | P.PN ---
Subjective Date of Service: 06/09/20 Chief Complaint: Colitis, BRBPR Patient reports persistent diarrhea. So far she has only tolerated clear liquid diet. She stated the hematochezia has resolved. She report significant improvement in abdominal pain. Physical Examination - Vital Signs Temperature: 97.9 F Blood Pressure: 119/58 Pulse: 71 Respirations: 18 Pulse Ox (%): 99 - Physical Exam General: Alert, In no apparent distress HEENT: Mucous membr. moist/pink Respiratory: Clear to auscultation bilaterally, Normal air movement Cardiovascular: No edema, Regular rate/rhythm, Normal S1 S2 Gastrointestinal: Normal bowel sounds, Soft and benign, Non-distended, No tenderness Musculoskeletal: No swelling Integumentary: No rashes Neurological: Normal strength at 5/5 x4 extr - Studies Microbiology Data (last 24 hrs): 06/06/20 16:39 Clean Catch Urine [place] Count - Final BETWEEN 10,000 & 100,000 CFU/ML 06/06/20 16:39 Clean Catch Urine - Final MIXED BUCKY. Assessment And Plan Physician Review Additional Text: Problem List Moderate descending colitis with hematochezia Asthma GERD Hypertension Atrial tachycardia/SVT Contain IV rocephin/flagyl. Continue IV fluid. Patient is also protonix and anti-emetics Continue cholysteramine. Discontinue Reglan. Stool culture: No growth. Stool occult blood positive: Prior hematochezia likely related to inflammation. Stool WBC, ova and parasite are pending. C. diff is negative. GI is following. continue home medications Advance diet as tolerated. VTE: SCDs Code: full
[2020-06-09] MEDS: ALPRAZOLAM 0.5 MG TABLET PO PRN (20:14)
[2020-06-09] MEDS: CETIRIZINE HCL 5 MG TABLET PO PRN (20:30)
[2020-06-09] MEDS: MONTELUKAST 10 MG TAB PO SCH (20:31)
[2020-06-10] MEDS: METRONIDAZOLE 500mg IVPB 500 MG/100 ML BAG IV SCH ×3 (00:34→18:25)
[2020-06-10] MEDS: NA CHLORIDE 0.9% 1,000 ML IV SCH ×3 (06:50→20:54)
[2020-06-10] MEDS: MORPHINE 2 MG/ML SYR IV PRN ×2 (08:56→20:58)
[2020-06-10] MEDS: CHOLESTYRAMINE/ASP 4 GM/PKT PO SCH ×2 (08:56→18:13)
[2020-06-10] MEDS: ONDANSETRON 4 MG/2 ML VIAL IV PRN ×2 (08:56→20:57)
[2020-06-10] MEDS: PANTOPRAZOLE 40 MG INJ IVP SCH ×2 (09:00→20:57)
[2020-06-10] MEDS: DULERA 100/5 (MOMETASONE/FORMOTEROL) INHALER IH SCH ×2 (11:11→20:54)
[2020-06-10] MEDS: CEFTRIAXONE/SWI 1gm 1 GM/10 ML SYR IV SCH (11:12)
[2020-06-10] MEDS: FLECAINIDE 100 MG TAB PO SCH ×2 (11:13→20:54)
[2020-06-10] MEDS: GABAPENTIN 300 MG CAP PO SCH ×2 (11:14→20:56)
[2020-06-10] MEDS: DICYCLOMINE HCL 10 MG CAP PO PRN ×2 (11:14→20:58)
--- NOTE | 2020-06-10 11:15 | RAD REPORT ---
EXAM DESCRIPTION: RAD - Abdomen 1 View (KUB) - 06/10/2020 10:51 am CLINICAL HISTORY: Gastroenteritis r/o ileus COMPARISON: <Comparisons> FINDINGS: Bowel gas pattern is non-specific. No obstruction, free air or pneumatosis. Air is presen t in nondilated colon. Neurostimulator device present entering the central canal mid lumbar level and extending to the midthoracic level off the field of view. A few phleboliths are present along the pe lvic floor. No significant bony findings IMPRESSION: Negative KUB examination. A negative KUB examination would favor gastroenteritis over ileus.
--- NOTE | 2020-06-10 12:44 | P.PN ---
Subjective Date of Service: 06/10/20 Chief Complaint: Colitis, BRBPR She stated the hematochezia has resolved. She report significant improvement in abdominal pain but reports persistent diarrhea Physical Examination - Vital Signs Temperature: 98.0 F Blood Pressure: 137/74 Pulse: 73 Respirations: 18 Pulse Ox (%): 98 - Physical Exam General: Alert, In no apparent distress Respiratory: Clear to auscultation bilaterally, Normal air movement Cardiovascular: No edema, Regular rate/rhythm, Normal S1 S2 Gastrointestinal: Normal bowel sounds, Soft and benign, Non-distended, No tenderness Musculoskeletal: No swelling Integumentary: No rashes Neurological: Normal strength at 5/5 x4 extr - Studies Microbiology Data (last 24 hrs): 06/06/20 16:39 Clean Catch Urine [place] Count - Final BETWEEN 10,000 & 100,000 CFU/ML 06/06/20 16:39 Clean Catch Urine - Final MIXED BUCKY. Assessment And Plan Physician Review Additional Text: Problem List Moderate descending colitis with hematochezia Asthma GERD Hypertension Atrial tachycardia/SVT Contain IV IV antibiotics Continue IV fluid for maintenance fluid requirement. Continue Protonix. Continue cholysteramine. Stool culture: No growth. Stool occult blood positive: Prior hematochezia likely related to inflammation. C. diff is negative. KUB results reviewed and unremarkable. GI is following. continue home medications Advance diet as tolerated. VTE: SCDs Code: full
[2020-06-10] MEDS ORDERED: Ringers Lactate 1,000 ML IV ONE (13:57)
[2020-06-10] MEDS ORDERED: LIDOCAINE 1% MPF 5 ML VIAL ONE (15:14)
[2020-06-10] MEDS ORDERED: propofoL 200 MG/20 ML VIAL IV ONE (15:14)
[2020-06-10] MEDS ORDERED: ONDANSETRON 4 MG/2 ML VIAL ONE (15:14)
--- NOTE | 2020-06-10 15:18 | ENDO RPT ---
[address], [address] EGD PROCEDURE REPORT EXAM DATE: 06/10/2020 PATIENT NAME: Laly Carranza MR#: [id number] BIRTHDATE: 1965 ATTENDING: [address] STATUS: inpatient - [facility] MACHINE FILLER: Rebecca Burdick RN and Celi Ortez INDICATIONS: The patient is a 54 yr old Female here for an EGD due to dyspepsia, mid epigastric abdominal pain, nausea, and chronic unexplained diarrhea PROCEDURE PERFORMED: EGD with biopsy MEDICATIONS: Per Anesthesia. TOPICAL ANESTHETIC: none CONSENT: The patient understands the risks and benefits of the procedure and understands that these risks include, but are not limited to: sedation, allergic reaction, infection, perforation and/or bleeding. Alternative means of evaluation and treatment include, among others: physical exam, x-rays, and/or surgical intervention. The patient elects to proceed with this endoscopic procedure. DESCRIPTION OF PROCEDURE: During intra-op preparation period all mechanical medical equipment was checked for proper function. Hand hygiene and appropriate measures for infection prevention was taken. Procedure, possible complications, and alternatives including but not limited to the possibility of bleeding, perforation, tear, infection, sepsis, need for surgery, need for blood transfusion, and anesthesia related complications were explained to the patient. After the risks, benefits and alternatives of the procedure were thoroughly explained, Informed consent was verified, confirmed and timeout was successfully executed by the treatment team. The patient was placed in the left lateral position. The patient was anesthetized with topical anesthesia. Through the anesthetized oropharyngeal area, the scope was passed without any difficulty. The [id number] ([id number]) endoscope was introduced through the mouth and advanced to the third portion of the duodenum. Retroflexed views revealed no abnormalities. The gastroscope was then slowly withdrawn and removed. Mild gastritis was found in the body and the antrum of the stomach. Multiple biopsies were obtained and sent to pathology. Multiple 3-6 mm sessile polyps were found in the body of the stomach. With jumbo forceps, a biopsy was obtained and sent to pathology. Small bowel biopsies obtained. ADVERSE EVENTS: There were no complications. IMPRESSIONS: 1. Mild gastritis in the body and the antrum of the stomach, s/p biopsies 2. Multiple 3-6 mm sessile polyps in the body of the stomach, s/p biopsy 3. Small bowel biopsies obtained RECOMMENDATIONS: 1. await biopsy results 2. acid suppression therapy REPEAT EXAM: Dimas Pike Dr eSigned: Dimas Pike Dr 06/10/2020 3:18 PM cc: CPT CODES: ICD9 CODES: PATIENT NAME: Laly CarranzaCosta MR#: [id number]
[2020-06-10] MEDS: ALPRAZOLAM 0.5 MG TABLET PO PRN (20:56)
[2020-06-10] MEDS: CETIRIZINE HCL 5 MG TABLET PO PRN (20:57)
[2020-06-10] MEDS: MONTELUKAST 10 MG TAB PO SCH (21:05)
[2020-06-11] MEDS: METRONIDAZOLE 500mg IVPB 500 MG/100 ML BAG IV SCH ×3 (01:00→17:00)
[2020-06-11] MEDS: ONDANSETRON 4 MG/2 ML VIAL IV PRN ×3 (01:35→17:45)
[2020-06-11] MEDS: MORPHINE 2 MG/ML SYR IV PRN ×3 (01:36→17:45)
[2020-06-11] MEDS: NA CHLORIDE 0.9% 1,000 ML IV SCH ×3 (02:50→22:39)
[2020-06-11 07:00] LABS: Absolute Lymphocytes (CBC) 1.9 K/uL (0.7-4.9); Basophils % 0.7 % (0-1.3); Hematocrit 32.3 % (36.0-45.0); Lymphocytes % 30.2 % (15.3-44.8); MPV 6.8 fL (7.6-11.3); RBC Red Blood Cell Count 3.62 M/uL (3.86-4.86)
[2020-06-11 07:16] LABS: Potassium 3.5 mmol/L (3.5-5.1)
[2020-06-11] MEDS: DULERA 100/5 (MOMETASONE/FORMOTEROL) INHALER IH SCH ×2 (09:00→21:00)
[2020-06-11] MEDS: GABAPENTIN 300 MG CAP PO SCH ×2 (09:28→20:24)
[2020-06-11] MEDS: CEFTRIAXONE/SWI 1gm 1 GM/10 ML SYR IV SCH (09:28)
[2020-06-11] MEDS: PANTOPRAZOLE 40 MG INJ IVP SCH ×2 (09:28→20:23)
[2020-06-11] MEDS: FLECAINIDE 100 MG TAB PO SCH ×2 (09:28→20:23)
[2020-06-11] MEDS: CHOLESTYRAMINE/ASP 4 GM/PKT PO SCH ×2 (09:28→17:00)
[2020-06-11] MEDS: DICYCLOMINE HCL 10 MG CAP PO PRN ×2 (09:44→17:45)
--- NOTE | 2020-06-11 17:11 | P.DS ---
Admission Date: 06/06/20 Discharge Date: 06/13/20 Disposition: ROUTINE DISCHARGE Discharge Condition: FAIR Reason for Admission: Colitis, BRBPR Brief History of Present Illness: 54-year-old woman with a history of asthma, hypertension, GERD, SVT presented to the emergency department for lower abdominal pain and bright red blood per rectum. Patient reported 4-5 bowel movements, the 1st were soft and without blood but the following bowel movements did consist of small amounts of bright red blood. Patient found to have a white blood cell count 15.1 hemoglobin 15.5 hematocrit 45.[address] demonstrated moderate descending colitis. Patient was given Rocephin/Flagyl in the emergency department. Patient recently had colonoscopy in March which demonstrated redundant colon, internal/external hemorrhoids and gastritis. Gastroenterology was consulted and patient admitted for further management. Hospital Course: Patient admitted to the medical floor, started on IV antibiotics and IV Protonix. Stool studies done were unremarkable. C. diff negative. Her response to treatment was slow. Patient seen by GI and started on cholestyramine. EGD was to perform which only demonstrated mild gastritis. Patient's abdominal symptoms gradually improved. She tolerated liquid diet, followed by soft diet. She had no fever throughout the hospital stay. Leukocytosis resolved. Her diarrhea resolved. She also experienced nausea and vomiting which also resolved during the course of the hospital stay. Patient has overall clinically improved and deemed stable for discharge. Home medications resumed on discharge. Vital Signs/Physical Exam: Temp Pulse Resp BP Pulse Ox 98 F 84 18 123/69 97 06/11/20 15:49 06/11/20 15:49 06/11/20 15:49 06/11/20 15:49 06/11/20 15:49 General: Alert, In no apparent distress, Oriented x3 HEENT: Mucous membr. moist/pink Respiratory: Clear to auscultation bilaterally, Normal air movement Cardiovascular: No edema, Regular rate/rhythm Gastrointestinal: Normal bowel sounds, Soft and benign, Non-distended, No tenderness Musculoskeletal: No swelling Integumentary: No rashes Neurological: Normal strength at 5/5 x4 extr Laboratory Data at Discharge: WBC 6.40 K/uL (4.3-10.9) D 06/11/20 06:28 Hgb 11.2 g/dL (12.0-15.0) L 06/11/20 06:28 Hct 32.3 % (36.0-45.0) L 06/11/20 06:28 Plt Count 229 K/uL (152-406) 06/11/20 06:28 PT 13.8 SECONDS (9.5-12.5) H 06/08/20 05:05 INR 1.20 06/08/20 05:05 Sodium 143 mmol/L (136-145) 06/11/20 06:28 Potassium 3.5 mmol/L (3.5-5.1) 06/11/20 06:28 BUN 3 mg/dL (7-18) L 06/11/20 06:28 Creatinine 0.69 mg/dL (0.55-1.3) 06/11/20 06:28 Glucose 85 mg/dL (74-106) 06/11/20 06:28 Phosphorus 2.8 mg/dL (2.5-4.9) 06/09/20 03:17 Total Bilirubin 0.5 mg/dL (0.2-1.0) 06/08/20 05:05 AST 14 U/L (15-37) L 06/08/20 05:05 ALT 20 U/L (12-78) 06/08/20 05:05 Alkaline Phosphatase 68 U/L (45-117) 06/08/20 05:05 Lipase 187 U/L (73-393) 06/06/20 15:04 Home Medications: Cetirizine HCl [Zyrtec] 10 mg PO BEDTIME 08/28/11 Gabapentin [Neurontin] 300 mg PO BID 08/28/11 Lisinopril 10 mg PO DAILY 08/28/11 Montelukast Sodium [Singulair] 10 mg PO BEDTIME 08/28/11 Tapentadol HCl [Nucynta] 100 mg PO TID PRN 08/28/11 Alprazolam [Xanax] 0.5 mg PO DAILY 06/07/20 Cholecalciferol (Vitamin D3) [Vitamin D 1000 Iu Tab*] 2,000 unit PO DAILY 06/07/20 Flecainide [Tambocor*] 50 mg PO BID 06/07/20 Metoprolol Tartrate [Lopressor] 50 mg PO DAILY 06/07/20 Omeprazole [Prilosec] 40 mg PO DAILY 06/07/20 Triamterene/Hydrochlorothiazid [Triamterene-Hctz 37.5-25 mg Tb] 1 cap PO DAILY 06/07/20 Cholestyramine/Asp [Questran Light*] 4 gm PO BIDWM #14 packet 06/11/20 Dicyclomine [Bentyl*] 10 mg PO TID PRN #30 cap 06/11/20 Mometasone/Formoterol [Dulera 100 Mcg/5 Mcg Inhaler] 2 puff IH BID #1 inhaler 06/11/20 Ondansetron [Zofran (Odt)*] 4 mg PO Q6H PRN #20 tab 06/11/20 New Medications: Dicyclomine [Bentyl*] 10 mg PO TID PRN #30 cap PRN Reason: Abdominal Cramps Mometasone/Formoterol [Dulera 100 Mcg/5 Mcg Inhaler] 2 puff IH BID #1 inhaler Cholestyramine/Asp [Questran Light*] 4 gm PO BIDWM #14 packet Ondansetron [Zofran (Odt)*] 4 mg PO Q6H PRN #20 tab PRN Reason: Nausea / Vomiting Diet: AHA (Soft diet and advance to solid diet as tolerated.) Activity: Ad carlos Followup: Trinidad Argueta MD [Primary Care Provider] - 1-2 Weeks Time spent managing pt's care (in minutes): 36
[2020-06-11] MEDS: CETIRIZINE HCL 5 MG TABLET PO PRN (20:23)
[2020-06-11] MEDS: MONTELUKAST 10 MG TAB PO SCH (20:23)
[2020-06-11] MEDS: ONDANSETRON 4 MG (ODT) TAB PO PRN (20:24)
[2020-06-11] MEDS: ALPRAZOLAM 0.5 MG TABLET PO PRN (20:24)
[2020-06-11] MEDS ORDERED: METOCLOPRAMIDE 10 MG/2mL INJ IV ONE (21:00)
[2020-06-12] MEDS: METRONIDAZOLE 500mg IVPB 500 MG/100 ML BAG IV SCH ×2 (01:00→08:57)
[2020-06-12] MEDS: ONDANSETRON 4 MG/2 ML VIAL IV PRN ×4 (01:22→23:38)
[2020-06-12] MEDS: MORPHINE 2 MG/ML SYR IV PRN ×4 (01:23→23:38)
[2020-06-12] MEDS: ACETAMINOPHEN 500 MG TAB PO PRN (05:17)
[2020-06-12] MEDS: NA CHLORIDE 0.9% 1,000 ML IV SCH ×2 (08:56→18:50)
[2020-06-12] MEDS: PANTOPRAZOLE 40 MG INJ IVP SCH ×2 (08:58→20:11)
[2020-06-12] MEDS: GABAPENTIN 300 MG CAP PO SCH ×2 (08:59→20:11)
[2020-06-12] MEDS: CHOLESTYRAMINE/ASP 4 GM/PKT PO SCH ×2 (08:59→17:00)
[2020-06-12] MEDS: FLECAINIDE 100 MG TAB PO SCH ×2 (08:59→20:11)
[2020-06-12] MEDS: CEFTRIAXONE/SWI 1gm 1 GM/10 ML SYR IV SCH (08:59)
[2020-06-12] MEDS: DULERA 100/5 (MOMETASONE/FORMOTEROL) INHALER IH SCH ×2 (09:00→21:00)
[2020-06-12] MEDS: ONDANSETRON 4 MG (ODT) TAB PO PRN (12:25)
[2020-06-12] MEDS: DICYCLOMINE HCL 10 MG CAP PO PRN (16:42)
--- NOTE | 2020-06-12 18:50 | P.PN ---
Subjective Date of Service: 06/11/20 Chief Complaint: Colitis, BRBPR She stated the hematochezia has resolved. Patient report nausea and not tolerating full liquid diet. Physical Examination - Vital Signs Temperature: 98.7 F Blood Pressure: 159/74 Pulse: 76 Respirations: 18 Pulse Ox (%): 94 - Physical Exam General: Alert, In no apparent distress, Oriented x3 HEENT: Mucous membr. moist/pink Neck: JVD not distended Respiratory: Clear to auscultation bilaterally, Normal air movement Cardiovascular: Regular rate/rhythm, Normal S1 S2 Gastrointestinal: Soft and benign, Non-distended Musculoskeletal: No swelling Integumentary: No rashes Assessment And Plan Physician Review Additional Text: Problem List Moderate descending colitis with hematochezia Asthma GERD Hypertension Atrial tachycardia/SVT Contain IV antibiotics Continue IV fluid for maintenance fluid requirement. Continue Protonix. Continue cholysteramine. Stool culture: No growth. Stool occult blood positive: Prior hematochezia likely related to inflammation. C. diff is negative. KUB unremarkable. GI input appreciated. EGD shows only mild gastritis. continue home medications Soft diet. VTE: SCDs Code: full
--- NOTE | 2020-06-12 18:57 | P.PN ---
Subjective Date of Service: 06/12/20 Chief Complaint: Colitis, BRBPR She ate solid diet can develop nausea last night. She stated since then she has not been able to tolerate her meals. She report significant nausea, no diarrhea. Physical Examination - Vital Signs Temperature: 98.7 F Blood Pressure: 159/74 Pulse: 76 Respirations: 18 Pulse Ox (%): 94 - Physical Exam General: Alert, In no apparent distress Respiratory: Normal air movement Cardiovascular: No edema, Regular rate/rhythm Gastrointestinal: Non-distended Musculoskeletal: No swelling Integumentary: No rashes Assessment And Plan Physician Review Additional Text: Problem List Acute gastroenteritis Moderate descending colitis with hematochezia Asthma GERD Hypertension Atrial tachycardia/SVT I suspect metronidazole contributing to patient's nausea. Patient has received 6 days of IV antibiotics. Will discontinue antibiotics Continue IV fluid Continue Protonix. Continue cholysteramine. Stool culture: No growth. Stool occult blood positive: Prior hematochezia likely related to inflammation. C. diff is negative. KUB unremarkable. EGD shows only mild gastritis. continue home medications Will D/c to home once she is able to tolerate drinking and Soft diet. VTE: SCDs Code: full
[2020-06-12] MEDS: ALPRAZOLAM 0.5 MG TABLET PO PRN (20:11)
[2020-06-12] MEDS: MONTELUKAST 10 MG TAB PO SCH (20:12)
[2020-06-12] MEDS: CETIRIZINE HCL 5 MG TABLET PO PRN (20:12)
[2020-06-13] MEDS: NA CHLORIDE 0.9% 1,000 ML IV SCH (03:42)
[2020-06-13] MEDS: ONDANSETRON 4 MG (ODT) TAB PO PRN (07:42)
[2020-06-13] MEDS: CHOLESTYRAMINE/ASP 4 GM/PKT PO SCH (07:42)
[2020-06-13] MEDS: GABAPENTIN 300 MG CAP PO SCH (07:43)
[2020-06-13] MEDS: DULERA 100/5 (MOMETASONE/FORMOTEROL) INHALER IH SCH (07:43)
[2020-06-13] MEDS: FLECAINIDE 100 MG TAB PO SCH (07:43)
[2020-06-13] MEDS: PANTOPRAZOLE 40 MG INJ IVP SCH (07:43)
[2020-06-13] MEDS: ACETAMINOPHEN 500 MG TAB PO PRN (07:52)
[2020-06-13 08:53] VITALS: O2SAT 96
[2020-06-13 12:37] VITALS: BP 135/61; TEMP 98.6
--- NOTE | 2020-06-14 19:10 | CON ---
Date of Consultation: 06/08/2020 Reason For Consultation: Colitis with lower abdominal pain, nausea, fevers, chills, night sweats, he matochezia, and abnormal CT scan revealing moderate descending colitis. History Of Present Illness: The patient is a 54-year-old white female with history of asthma, hypert ension, gastroesophageal reflux disease and SVT, presented to the emergency room with right and left lower quadrant pain, periumbilical pain, nausea, fevers, chills, night sweats, hematochezia. CT scan revealed moderate descending colitis. Last colonoscopy was approximately in 2019, which was negativ e by her recollection today. She has had pain began in the lower abdomen on Sunday night with appr oximately about 3 stools per day with nocturnal bowel movements, but no fecal incontinence. She jeffy es any emesis or sick contacts. After going out to eat at a restaurant, she got bad food. Past Medical History: Significant for hypertension, asthma, gastroesophageal reflux disease, SVT wit h atrial tachycardia, rotator cuff surgery, tummy tuck, uterine bladder ablation, and left knee surge ry. Social History: She is , 2 children. No tobacco. No alcohol. Family History: Father of dementia. Mother of diabetes, coronary artery disease, and stro ke. Brother of [place] and lung cancer. He was a tobacco user. Medications: Include Zyrtec, Neurontin, lisinopril, Singulair, Nucynta, Xanax, vitamin D3, Tambocor, Lopressor, Prilosec Questran, Bentyl, Dulera, Zoloft. Allergies: TO CODEINE, LEVAQUIN, OXYCODONE, BACTRIM, AND SEROTONIN. Review of Systems: The patient has right and left lower quadrant pain, periumbilical pain, nausea, fevers, chills, night sweats, hematochezia, but denies any emesis, sick contacts, chest pain, shortness of breath, seizure , syncope, lower extremity edema, muscle aches, joint aches, backaches, melena, hematemesis, coffee-g round emesis, hemoptysis, hematuria. Physical Examination: Vital Signs: She is 5 feet 5 inches, 188 pounds, BMI of 31 kg/sq m. HEENT: Normocephalic, atraumatic. Anicteric. Pupils equal, round, and reactive to light. Extraocu lar movements intact. Oropharynx is clear. Neck: Supple. No masses. Respirations: Clear to auscultation bilaterally. Cardiac: Regular rate and rhythm. Gastrointestinal: Positive bowel sounds. Soft, nontender, nondistended. No hepatosplenomegaly. Extremities: No clubbing, cyanosis, or edema. 2+ pulses. Neuro: Alert and oriented x3. Grossly nonfocal. 5/5 motor, sensation, light touch. Laboratory Data: The patient has a white count of 9.8 down from 14.0 yesterday and 15.1 the day befo re, hemoglobin of 12.6, hematocrit 38, MCV of 89.7, platelet count of 220, polys of 71%, lymphocytes 20%, monocytes 5%. He had a PT of 11.8, INR of 1.2. The patient has a sodium of 139, potassium 3.4, chloride 105, bicarb 27, BUN 13, creatinine 0.8, glucose 78, calcium 8.1, total bilirubin 0.5, AST o f 14, ALT of 20, alkaline phosphatase 68, total protein 6.4, albumin 3.3, lipase 187 and normal. UA was unremarkable on the . C diff toxin was negative. COVID-19 PCR swab testing was negati ve. CT abdomen and pelvis revealed moderate descending colitis. Impression: 1.Colitis. CT revealing moderate descending colitis with elevated white count. She states that she has right and left lower quadrant pain as well as periumbilical pain, 6/10, now down to 3/10 with p. r.n. pain medicine. It is associated with nausea, fevers, chills, night sweats, hematochezia. She d enies any emesis or sick contacts. The pain began Sunday night with diarrhea as well as 30 bowel m ovements a day and nocturnal bowel movements, but no fecal incontinence. CT reveals moderate descend ing colitis as stated above. Colonoscopy was last performed in 2019. She probably has an infectious colitis versus ischemic colitis versus other. 2.History of hypertension, asthma, gastroesophageal reflux disease SVT with atrial tachycardia, rota tor cuff surgery, tummy tuck, uterine ablation, and left knee surgery. Recommendations: 1.Continue IV fluids with resuscitation. 2.Check stool studies. 3.Clear liquids and slowly advance diet to a GI soft. 4.IV antibiotics. 5. . MARILYN/EDEN Voice ID: [id number] Report ID: [id number]
--- NOTE | 2020-06-18 18:38 | P.PN ---
Subjective Date of Service: 06/11/20 Chief Complaint: Colitis, abnormal CT abd/pel, RLQ/LLQ/periumb pain, N/V/F/C/NS, hematochezi Subjective: Improving Physical Examination - Vital Signs Temperature: 98.6 F Blood Pressure: 135/61 Pulse: 63 Respirations: 16 Pulse Ox (%): 96 Assessment And Plan - Current Problems (Diagnosis) (1) Colitis Status: Acute (2) RLQ abdominal pain Status: Acute (3) LLQ abdominal pain Status: Acute (4) Periumbilical abdominal pain Status: Acute (5) Hematochezia Status: Acute (6) Nausea Status: Acute (7) Fever and chills Status: Acute (8) Night sweats Status: Acute - Plan REC: 1) IVFs & resus 2) await stool studies 3) CLs 4) continue IV antibiotics 5) Questran 6) acid suppression Physician Review Additional Text: Problem List Acute gastroenteritis Moderate descending colitis with hematochezia Asthma GERD Hypertension Atrial tachycardia/SVT I suspect metronidazole contributing to patient's nausea. Patient has received 6 days of IV antibiotics. Will discontinue antibiotics Continue IV fluid Continue Protonix. Continue cholysteramine. Stool culture: No growth. Stool occult blood positive: Prior hematochezia likely related to inflammation. C. diff is negative. KUB unremarkable. EGD shows only mild gastritis. continue home medications Will D/c to home once she is able to tolerate drinking and Soft diet. VTE: SCDs Code: full
--- NOTE | 2020-06-18 18:42 | P.PN ---
Subjective Date of Service: 06/13/20 Chief Complaint: Colitis, abnormal CT abd/pel, RLQ/LLQ/periumb pain, N/V/F/C/NS, hematochezi Subjective: Improving (s/p EGD with mild gastritis noted, improving DEONNA pain, nausea. tolerating po) Physical Examination - Vital Signs Temperature: 98.6 F Blood Pressure: 135/61 Pulse: 63 Respirations: 16 Pulse Ox (%): 96 Assessment And Plan - Current Problems (Diagnosis) (1) Colitis Status: Acute (2) RLQ abdominal pain Status: Acute (3) LLQ abdominal pain Status: Acute (4) Periumbilical abdominal pain Status: Acute (5) Hematochezia Status: Acute (6) Nausea Status: Acute (7) Fever and chills Status: Acute (8) Night sweats Status: Acute - Plan REC: 1) IVFs & resus 2) await stool studies 3) advance diet to FLs to GI soft 4) continue IV antibiotics 5) Questran 6) acid suppression Physician Review Additional Text: Problem List Acute gastroenteritis Moderate descending colitis with hematochezia Asthma GERD Hypertension Atrial tachycardia/SVT I suspect metronidazole contributing to patient's nausea. Patient has received 6 days of IV antibiotics. Will discontinue antibiotics Continue IV fluid Continue Protonix. Continue cholysteramine. Stool culture: No growth. Stool occult blood positive: Prior hematochezia likely related to inflammation. C. diff is negative. KUB unremarkable. EGD shows only mild gastritis. continue home medications Will D/c to home once she is able to tolerate drinking and Soft diet. VTE: SCDs Code: full
== END 2020-06-13 12:35 | disposition home or self-care (01) | DRG 392 ==
LOC: ER 13:52 → ERHOLD 19:21 → 4TH 06-07 20:56
PROVIDERS: ADMIT Hospitalist; ATTEND Internal Medicine
PROC: 0DB78ZX Excision of Stomach, Pylorus, Via Natural or Artificial Opening Endoscopic, Diagnostic (ICD-10-PCS; 2020-06-10)
PROC: 0DB68ZX Excision of Stomach, Via Natural or Artificial Opening Endoscopic, Diagnostic (ICD-10-PCS; principal; 2020-06-10 12:30)
DX: K52.9 Noninfective gastroenteritis and colitis, unspecified (principal); I47.1 Supraventricular tachycardia; K29.70 Gastritis, unspecified, without bleeding; D72.829 Elevated white blood cell count, unspecified; J45.909 Unspecified asthma, uncomplicated; K21.9 Gastro-esophageal reflux disease without esophagitis; K31.7 Polyp of stomach and duodenum; I10 Essential (primary) hypertension; Z88.5 Allergy status to narcotic agent; Z88.1 Allergy status to other antibiotic agents; Z88.8 Allergy status to other drugs, medicaments and biological substances; Z79.82 Long term (current) use of aspirin; Z79.899 Other long term (current) drug therapy; Z20.822 Contact with and (suspected) exposure to COVID-19
CPT/HCPCS: 36415; 74018; 74177; 80048; 80053; 80069; 80076; 81003; 82274; 83690; 84132; 85025; 85610; 87045; 87046; 87086; 87088; 87177; 87209; 87324; 87449; 88305; 88312; 89055; 96365; 96366; 96375; 99285; C9113; J0696; J2270; J2405; J2704; J3480; J7030; J7040; J7120; J7606; Q9967; U0003